=== PATIENT | female | born 1985 | race Caucasian/White ===

== ENCOUNTER 2017-11-11 11:28 | Outpatient (CLI) | payer OTHER ==
[~2017-11-11] VITALS: Ht 157.5 cm; Wt 96.2 kg
[2017-11-11 12:05] VITALS: BP 115/78
[2017-11-11 13:37] LABS: BASOPHIL (%) 0.2 % (0-1); EOSINOPHIL (%) 1.7 % (0-5); EOSINOPHIL COUNT 0.2 K/uL (0-0.3); HEMATOCRIT 36.8 % (36.0-46.0); HEMOGLOBIN 12.6 G/DL (11.9-15.5); IMMATURE GRANULOCYTE (%) 0.4 % (0.0-0.7); LYMPHOCYTE (%) 17.9 % (15-42); LYMPHOCYTE COUNT 2.5 K/uL (1.0-2.8); MCH 30.9 PG (29.0-34.0); MCHC 34.2 G/DL (30.0-36.0); MCV 90.2 FL (83-99); MONOCYTE (%) 5.4 % (3-12); MONOCYTE COUNT 0.8 K/uL (0-0.8); NEUTROPHIL (%) 74.4 % (45-76); NEUTROPHIL COUNT 10.2 K/uL (1.8-6.4); PLATELET COUNT 208 K/uL (156-360); RBC DIS.WIDTH-CV 13.1 % (11.8-14.6); RBC DIS.WIDTH-SD 43.1 % (39-53); RED BLOOD COUNT 4.08 M/uL (3.80-5.20); WHITE BLOOD COUNT 13.8 K/uL (4.1-10.2)
[2017-11-11 14:37] VITALS: BP 118/63
== END 2017-11-11 17:45 | disposition home or self-care (01) ==
LOC: LDRP-OP 11:28 → 2WEST 11:29 → LDRP-OP 02-08 13:55
PROVIDERS: Nurse Practitioner
DX: Z03.79 Encounter for other suspected maternal and fetal conditions ruled out (principal); Z3A.33 33 weeks gestation of pregnancy; V49.20XA Unspecified car occupant injured in collision with unspecified motor vehicles in nontraffic accident, initial encounter
CPT/HCPCS: 59025; 76805; 85025; 85460; G0378